=== PATIENT | female | born 1960 | race Caucasian/White ===

== ENCOUNTER 2017-02-21 12:16 | Emergency (ER) | payer OTHER ==
--- NOTE | 2017-02-21 12:29 | PDOC ---
Back Pain / Injury HPI - General Chief Complaint: Neck / Back Complaint Stated Complaint: BACK PAIN Date Seen by Provider: 02/21/17 Time Seen by Provider: 12:25 Source: Patient, Spouse Exam Limitations: POSITIVE: No limitations Nurse's Notes Reviewed & Considered: Yes - History of Present Illness Initial Comments: This is a very pleasant 50-year-old female complaining of left flank pain. Ultimately 2 hours prior to presentation here in the emergency department patient developed left back and flank pain. She has taken Azo and continues to have escalating pain. She denies any headache, no sore throat, no chest pain or shortness of breath, no fever chills or sweats, no nausea vomiting or diarrhea, no hematuria or dysuria at this time. Body Location Affected: REPORTS: Back Timing: REPORTS: Abrupt Duration: 1-3 hours Severity: Severe Quality: REPORTS: Cramping, "Pain", Sharpness, Throbbing, Pressure Context: REPORTS: None Location at Time of Onset: REPORTS: Home Modifying Factors: improves with: Nothing Associated Symptoms: REPORTS: Back pain Similar Symptoms Previously: No Recent Care Received: REPORTS: Denies Any Prior Injuries Related to Current Complaint?: No - Patient Home Medications Home Medications: Home Medications Acetaminophen [Tylenol] 1,000 mg PO PRN 02/21/17 Phenazopyridine HCl [Azo-Tabs] 95 mg PO PRN 02/21/17 - Patient Allergies Allergies/Adverse Reactions: Allergies Allergy/AdvReac Type Severity Reaction Status Date / Time acetaminophen [From Percocet] Allergy VOMITING Verified 02/21/17 12:21 nitrofurantoin Allergy VOMITING Verified 02/21/17 12:21 [From Macrobid] nitrofurantoin Allergy VOMITING Verified 02/21/17 12:21 macrocrystalline [From Macrobid] oxycodone HCl [From Percocet] Allergy VOMITING Verified 02/21/17 12:21 ROS - Limitations ROS Limitations: No Limitations Constitution: REPORTS: Denies Symptoms Cardiovascular: REPORTS: Denies Cardiac Symptoms Respiratory: REPORTS: Denies Resp Symptoms Neurological: REPORTS: Denies Neuro Symptoms Gastrointestinal: REPORTS: Denies GI Symptoms Endocrine: REPORTS: Denies Symptoms Musculoskeletal: REPORTS: Denies MS Symptoms Genitourinary: REPORTS: Flank Pain (Left side) Eyes: REPORTS: Denies Symptoms ENT: REPORTS: Denies Symptoms Skin: REPORTS: Denies Skin Symptoms Lympathic: REPORTS: Denies Lympathic Symptoms Immunologic: POSITIVE: Denies Symptoms Psychiatric: POSITIVE: Denies Psych Symptoms Back Physical Assessment - General Appearance General Appearance: REPORTS: Alert, Cooperative, Severe Distress - HEENT HEENT: POSITIVE: Head Inspection Nml, Eyes Inspection Nml, Ears Inspection Nml, Nose Inspection Nml, Oral/Dental Inspect. Nml, Pharynx Inspect. Nml, PERRL, EOMI - Pupil Size Pupil Size: 4 mm: Bilateral - Neck Neck: POSITIVE: Non Tender, Painless ROM, Trachea Midline - Respiratory / CVS Respiratory / CVS: POSITIVE: Chest Non Tender, No Ecchymosis, Breath Sounds Normal, No Respiratory Distress, Heart Sounds Normal, Regular Rate/Rhythm - Abdomen Abdomen: Soft: (All Quadrants), Normal Bowel Sounds: (All Quadrants), Denies Tenderness: (RLQ), (LUQ), (RUQ), No Splenomegaly: (All Quadrants), No Hepatomegaly: (All Quadrants), No Guarding: (All Quadrants), No Rebound: (All Quadrants), No Palpable Pulse: (All Quadrants), No Palpabale Mass: (All Quadrants), No Distention: (All Quadrants), No Rigidity: (All Quadrants), Tenderness Noted: (LLQ) - Back Back: REPORTS: CVA Tenderness (L) - Skin Skin: REPORTS: Intact, Normal For Race, Warm, Dry, No Rash - Extremities Extremity Assessment: Non-Tender: (ALL), Normal ROM: (ALL), No Edema: (ALL), Normal Inspection: (ALL), No Swelling: (ALL), Pelvis Stable: (ALL) Musculoskeletal: REPORTS: Back Pain - Neurological / Psychological Neuro / Psych: POSITIVE: Oriented X3, Motor Normal, Sensation Normal, Mood Appropriate, Affect Appropriate Back Progress - Results Reviewed by me Xrays/CTs/US Reviewed: Yes Discussed with Radiologist: Yes Lab Results Reviewed: Yes Lab Results:: Laboratory Results 02/21/17 02/21/17 Range/Units 12:24 12:40 WBC 10.11 (4.8-10.8) 10^3/uL RBC 4.61 (4.20-5.40) 10^6/uL Hgb 13.5 (12.0-16.0) g/dL Hct 40.0 (37.0-47.0) % MCV 86.8 (81-99) FL MCH 29.3 (27-31) PG MCHC 33.8 (33-37) g/dL RDW Std Deviation 38.8 L (39-50) fL RDW Coeff of Gurdeep 12.5 (11.5-14.5) % Plt Count 345 (140-350) 10*3/uL MPV 9.4 (7.4-12.2) FL Immature Gran % (Auto) 0.2 (0-5) % Neut % (Auto) 70.4 (50-80) % Lymph % (Auto) 21.0 (10-50) % Jewell % (Auto) 6.9 (5-15) % Eos % (Auto) 1.1 (0-8) % Baso % (Auto) 0.4 (0-1) % Immature Gran # (Auto) 0.02 10*3/UL Neut # (Auto) 7.12 10*3/UL Lymph # (Auto) 2.12 10*3/uL Jewell # (Auto) 0.70 (0.3-0.8) 10*3/UL Eos # (Auto) 0.11 10*3/UL Baso # (Auto) 0.04 10*3/UL WBC Morphology Comment Normal morphology (NORM) Plt Morphology Comment Normal morphology (NORM) RBC Morph Comment Normal morphology (NORM) Sodium 140 (135-145) meq/L Potassium 3.9 (3.8-5.2) meq/L Chloride 105 (98-112) meq/L Carbon Dioxide 22 L (23-33) meq/L Anion Gap 13 (5-20) BUN 20 (7-22) mg/dL Creatinine 0.9 (0.50-1.20) mg/dL Estimated GFR > 60 (>60 ml/min/1.73m(2)) BUN/Creatinine Ratio 22.22 H (6-20) Glucose 86 (78-110) mg/dL Calculated Osmolality 291.0 (267-292) mOsm/kg Calcium 9.7 (8.7-10.7) mg/dL Total Bilirubin 0.6 (0.3-1.2) mg/dL AST 37 (8-39) IU/L ALT 56 H (9-52) IU/L Alkaline Phosphatase 93 (38-126) IU/L Total Protein 7.4 (6.1-8.0) g/dL Albumin 4.6 (3.5-4.8) g/dL Globulin 2.8 (2.50-4.10) g/dL Albumin/Globulin Ratio 1.60 (1.3-2.0) mg/g Ur Collection Type Clean catch urine Urine Color [place] Urine Clarity Clear (CLEAR) Ur Leukocyte Esterase Mechanotherapist Urine RBC 5-10 (NONE) /hpf Urine WBC 15-20 (NONE) Ur Squamous Epith Cells Rare (NONE) Ur Renal Epithelial Cell None (NONE) Urine Crystals None Urine Bacteria Few (NONE) Urine Casts None (NONE) Urine Mucus None (NONE) Urine Trichomonas None (NONE) Urine Yeast None (NONE) Ur Culture Indicated? Culture set - Patient's Progress Pain Medication Addressed: POSITIVE: Yes Re-Examine Time: 14:25 Status: POSITIVE: Improved MDM / ED Course: Patient was examined, IV started, blood drawn and sent to the lab for studies, radiographic examinations were obtained. Patient received a liter of normal saline, Toradol, and Zofran. Her symptoms significantly improved. Findings: CBC shows white count hemoglobin and hematocrit are normal. Comprehensive metabolic panel is unremarkable. Urinalysis shows rare bacteria. CT scan of her abdomen shows a left renal calculi that measures 13-1/2 cm per my interpretation. He was noted to be stranding around the left kidney. Assessment: Large left renal calculi. Plan: Discharge and transport via privately owned vehicle to [facility] [place] for stent placement. I have talked to Dr. Nicholson who has graciously accepted the patient. - Consult Consult (If Yes, Name of Consulting MD & Time Called): Yes (Dr. Nicholson 14:15) Counseled: POSITIVE: Patient, Family, RE: Lab Results, RE: Radiology Results, RE : DX, RE: Need for F/U Patient Care Time - Estimated PCT Patient Care Time (In Minutes): 45 Vital Signs - Recent Vital Signs Vital Signs: Vital Signs (Last 8 hours) Temp Pulse Resp BP Pulse Ox 02/21/17 12:23 96.6 F L 72 16 125/87 99 - VS Reviewed Vital Signs Reviewed: Yes Discharge Clinical Impression: Calculus of kidney Discharge Disposition: Transferred to Tertiary Care Facility Condition: Stable Patient Instructions Given at Discharge: Kidney Stones (ED) Date Decision to Transfer to Another Facility: 02/21/17 Time Decision to Transfer to Another Facility: 14:28
[2017-02-21 12:32] VITALS: RESP 16; TEMP 96.6
[2017-02-21] MEDS: Sodium Chloride 0.9% 1,000 ML PRIMARY IV ONE (12:35)
[2017-02-21] MEDS: ONDANSETRON 4 MG/2 ML VIAL IVP ONE (12:38)
[2017-02-21] MEDS: KETOROLAC 15 MG/1 ML VIAL IVP ONE (12:39)
[2017-02-21 12:50] LABS: HEMOGLOBIN 13.5 g/dL (12.0-16.0); MEAN CORPUSCULAR HEMOGLOBIN 29.3 PG (27-31); MEAN CORPUSCULAR HGB CONC 33.8 g/dL (33-37); MEAN CORPUSCULAR VOLUME 86.8 FL (81-99); RED BLOOD COUNT 4.61 10^6/uL (4.20-5.40)
[2017-02-21 12:51] LABS: BASOPHILS # (AUTO) 0.04 10*3/UL; BASOPHILS % (AUTO) 0.4 % (0-1); EOSINOPHILS # (AUTO) 0.11 10*3/UL; EOSINOPHILS % (AUTO) 1.1 % (0-8); LYMPHOCYTES # (AUTO) 2.12 10*3/uL; MEAN PLATELET VOLUME 9.4 FL (7.4-12.2); MONOCYTES % (AUTO) 6.9 % (5-15); NEUTROPHILS # (AUTO) 7.12 10*3/UL; NEUTROPHILS % (AUTO) 70.4 % (50-80); PLATELET MORPHOLOGY COMMENT NORMAL MORPHOLOGY (NORM); RBC MORPHOLOGY COMMENT NORMAL MORPHOLOGY (NORM); WBC MORPHOLOGY COMMENT NORMAL MORPHOLOGY (NORM)
[2017-02-21 13:08] LABS: BLOOD UREA NITROGEN 20 mg/dL (7-22); BUN/CREATININE RATIO 22.22 (6-20); CALCIUM 9.7 mg/dL (8.7-10.7); EST GLOMERULAR FILTRATION > 60 (>60 ml/min/1.73m(2)); SERUM ALBUMIN 4.6 g/dL (3.5-4.8)
--- NOTE | 2017-02-21 13:44 | DI ---
HISTORY: Left flank pain, stone protocol. PREVIOUS EXAM: None available. TECHNIQUE: Axial images were acquired from the lung bases through the ischial tuberosities without c ontrast. MPR. Absent IV contrast precludes adequate evaluation of viscera and vessels, including ly mph nodes. FINDINGS: CHEST: Lungs: Bibasilar atelectasis without focal consolidation or pleural effusion. No pneumothorax. Pericardial effusion: No pericardial effusion. ABDOMEN: Liver: No calcification or adjacent inflammatory change. Gallbladder: Distended with bile, no adjacent inflammatory change. Pancreas: No adjacent inflammatory change. Adrenals: Usual non-contrast appearance. Spleen: Usual non-contrast appearance. Kidneys/Ureters: 10 mm left renal pelvis calculus (coronal image 52) with mild dilation of the upper pole renal pelvis and perinephric stranding. Right non-obstructive nephroliths. Several phleboliths a bout the course of the left distal ureter, appear extrenisic. PELVIS: Bowel: Non-obstructive pattern. No evidence of appendicitis. Mesenteric lymph nodes: No enlarged mesenteric lymph nodes. Peritoneum: No large volume free intraperitoneal fluid or air noted. Bladder: Distended with urine. BONES: No acute osseous abnormality. Multilevel degenerative changes. Paraspinal fat planes appear p reserved. IMPRESSION: 1. 10 mm left renal pelvis calculus with mild dilation of the upper pole renal pelvis and perinephric stranding. No ureteral calculi or dilation. 2. Right non-obstructive nephroliths. NOTIFICATION: The above findings were phoned to Naomi Love in the ER Department on 02/21/2017 at 4:20pm EST.
[2017-02-21 13:51] LABS: COLOR,URINE ORANGE; URINE SAMPLE TYPE CLEAN CATCH URINE
[2017-02-21 13:52] LABS: CLARITY,URINE CLEAR (CLEAR)
[2017-02-21 13:53] LABS: BACTERIA,URINE FEW; SQUAMOUS EPITHELIAL CELL,UR RARE; WBC,URINE 15-20
[2017-02-21] MEDS: CIPROFLOXACIN 500 MG TABLET PO ONE (14:46)
[2017-02-21] MEDS: MORPHINE SULFATE 4 MG/1 ML IVP ONE (14:46)
== END 2017-02-21 14:50 | disposition short-term general hospital (02) ==
LOC: EDBD 12:16 → ER 12:16
DX: N20.0 Calculus of kidney (principal); M54.89 Other dorsalgia; R10.32 Left lower quadrant pain; R10.12 Left upper quadrant pain
CPT/HCPCS: 74176; 80053; 81001; 81003; 85025; 87077; 87088; 87185; 87186 ×2; 96361; 96374; 96375; 99283 ×2; J1885; J2270; J2405; J7030